=== PATIENT | male | born 1975 | race Caucasian/White ===

== ENCOUNTER 2023-05-01 08:26 | Outpatient (CLI) | payer OTHER ==
[~2023-05-01 08:26] MED LIST: ALBUTEROL SUL5 MG/ML; DYMISTA NASAL S23 GM; FLONASE16 G1; HYDROCODONE-CH115 ML; TUSSI-PRES LIQ118 ML; TUSSIN DM COUG120 ML
== END 2023-05-01 08:38 | disposition home or self-care (01) ==
LOC: SONOGRAMA 08:26
DX: E04.1 Nontoxic single thyroid nodule (principal)

== ENCOUNTER 2023-06-03 08:19 | Outpatient (CLI) | payer OTHER | END 2023-06-03 08:32 | disposition home or self-care (01) | LOC: TOM 08:19 | DX: Z12.11 Encounter for screening for malignant neoplasm of colon (principal) ==